=== PATIENT | female | born 1985 | race Caucasian/White ===

== ENCOUNTER 2022-07-31 15:55 | Outpatient (CLI) | payer OTHER, SELFPAY | END 2022-07-31 15:56 | disposition home or self-care (01) | PROVIDERS: PCP Family Medicine; Visit Provider Family Medicine | DX: E11.9 Type 2 diabetes mellitus without complications (principal); I10 Essential (primary) hypertension; Z13.6 Encounter for screening for cardiovascular disorders | CPT/HCPCS: 80048; 80061; 84443 ==

== ENCOUNTER 2023-10-23 17:05 | Outpatient (CLI) | payer OTHER, SELFPAY | END 2023-10-23 17:06 | disposition home or self-care (01) | PROVIDERS: PCP Family Medicine; Visit Provider Family Medicine | DX: Z13.220 Encounter for screening for lipoid disorders (principal); I10 Essential (primary) hypertension | CPT/HCPCS: 80048; 80061 ==

== ENCOUNTER 2024-03-25 16:57 | Outpatient (CLI) | payer OTHER, SELFPAY | END 2024-03-25 16:58 | disposition home or self-care (01) | LOC: MAMMO 16:58 | PROVIDERS: PCP Family Medicine; Visit Provider Family Medicine | DX: Z12.31 Encounter for screening mammogram for malignant neoplasm of breast (principal); N63.20 Unspecified lump in the left breast, unspecified quadrant | CPT/HCPCS: 77063; 77067 ==

== ENCOUNTER 2024-04-24 10:27 | Outpatient (CLI) | payer OTHER, SELFPAY ==
--- NOTE | 2024-04-24 10:45 | CRLHL7_ITS ---
For Patients: As a result of the Cures Act, medical imaging exams and procedure reports are released immediately into your electronic medical record. You may view this report before your referring provider. If you have questions, please contact your health care provider. DIGITAL DIAGNOSTIC LEFT MAMMOGRAM USING TOMOSYNTHESIS AND COMPUTER-AIDED DETECTION LEFT BREAST ULTRASOUND CLINICAL HISTORY: LEFT breast mass/asymmetry. COMPARISON: 03/25/2024. TECHNIQUE: Digital LEFT mammogram in two projections. Tomosynthesis was used in this interpretation. Real-time ultrasound imaging of LEFT breast with imaging documentation. Scanning was performed by both the technologist and the radiologist. BREAST COMPOSITION: The breasts are almost entirely fatty. FINDINGS: 3D spot compression CC/MLO LEFT breast mammogram images submitted. Decreased conspicuity of previously noted asymmetric density. No architectural distortion. No suspicious calcifications. Targeted LEFT breast ultrasound performed at 3 o`clock 6 cm from the nipple. In this location, there are multiple small cysts, measuring in total 8 x 4 x 9 millimeters. IMPRESSION: Benign fibrocystic changes LEFT breast 3 o`clock 6 cm from the nipple. No suspicious findings. No evidence of malignancy. RECOMMENDATIONS: Routine screening mammography. A lay language report of this examination will be provided to the patient. BI-RADS Category 2: Benign Dictated by Brayan Muir MD @ 04/24/2024 11:25:35 AM jj/Dictated by: Brayan Muir MD @ 04/24/2024 11:25:00 AM (Electronically Signed)
--- NOTE | 2024-04-24 11:15 | CRLHL7_ITS ---
For Patients: As a result of the Cures Act, medical imaging exams and procedure reports are released immediately into your electronic medical record. You may view this report before your referring provider. If you have questions, please contact your health care provider. SEE DIGITAL DIAGNOSTIC LEFT MAMMOGRAM PERFORMED SAME DAY CRL:[email or web address]/Dictated by: Brayan Muir MD @ 04/24/2024 11:25:00 AM (Electronically Signed)
== END 2024-04-24 10:28 | disposition home or self-care (01) ==
LOC: MAMMO 10:28
PROVIDERS: PCP Family Medicine; Visit Provider Family Medicine
DX: N63.20 Unspecified lump in the left breast, unspecified quadrant (principal); N60.12 Diffuse cystic mastopathy of left breast
CPT/HCPCS: 76642; 77065; G0279

== ENCOUNTER 2024-06-30 17:04 | Outpatient (CLI) | payer OTHER, SELFPAY ==
[2024-06-30 19:04] LABS: Clue Cells No Clue Cells Seen (None Seen); Trichomonas No Trichomonas Seen (None Seen); Yeast No Yeast Seen (None Seen)
[2024-07-05 07:28] LABS: HPV Source Cervix; HPV, High Risk by TMA Not Detected
== END 2024-06-30 17:05 | disposition home or self-care (01) ==
PROVIDERS: PCP Family Medicine; Visit Provider Family Medicine
DX: N89.8 Other specified noninflammatory disorders of vagina (principal); Z12.4 Encounter for screening for malignant neoplasm of cervix; Z11.51 Encounter for screening for human papillomavirus (HPV)
CPT/HCPCS: 87210; 87624; 87625; 88141; 88142

== ENCOUNTER 2024-12-08 17:52 | Outpatient (CLI) | payer OTHER, SELFPAY | END 2024-12-08 17:53 | disposition home or self-care (01) | PROVIDERS: PCP Family Medicine | DX: R20.0 Anesthesia of skin (principal) | CPT/HCPCS: 84443 ==

== ENCOUNTER 2025-01-05 17:08 | Outpatient (CLI) | payer OTHER, SELFPAY | END 2025-01-05 17:09 | disposition home or self-care (01) | PROVIDERS: PCP Family Medicine; Visit Provider Family Medicine | DX: R53.83 Other fatigue (principal); D64.9 Anemia, unspecified; E11.9 Type 2 diabetes mellitus without complications; I10 Essential (primary) hypertension | CPT/HCPCS: 80048; 80061; 82607; 82728; 82746 ==

== ENCOUNTER 2025-02-10 15:25 | Outpatient (CLI) | payer OTHER, SELFPAY ==
[2025-02-10 19:55] LABS: Bacterial Vaginosis* Negative (Negative); Candida glab/krus NOT DETECTED (No Detected)
== END 2025-02-10 15:26 | disposition home or self-care (01) ==
LOC: NFLDREF 15:25
PROVIDERS: PCP Family Medicine; Visit Provider Obstetrics & Gynecology
DX: R10.20 Pelvic and perineal pain unspecified side (principal); D64.9 Anemia, unspecified
CPT/HCPCS: 81513; 87086; 87481; 87661